=== PATIENT | female | born 1960 | race Two or more races ===

== ENCOUNTER 2025-01-23 21:48 | Emergency (ER) | payer MEDICAID, OTHER ==
[~2025-01-23] VITALS: Ht 172.7 cm; Wt 77.1 kg
[2025-01-23 21:50] VITALS: BP 115/70
[2025-01-23] MEDS ORDERED: OXYC-133 PO (22:15)
[2025-01-23] MEDS ORDERED: METO25TA6 PO (22:15)
[2025-01-23] MEDS ORDERED: ATOR40TA PO (22:15)
[2025-01-23] MEDS ORDERED: ASPI81TA31 PO (22:15)
[2025-01-23 22:34] LABS: PLATELET COUNT (AUTO) 233 K/uL (179-408); RED BLOOD CELL COUNT(AUTO) 4.66 MIL/uL (3.63-4.92); RED CELL DISTRIBUTION WIDTH 13.2 % (12.3-17.7); WHITE BLOOD COUNT (AUTO) 11.3 K/uL (3.8-11.8)
[2025-01-23 22:46] LABS: CREATININE 1.1 mg/dL (0.6-1.3); SODIUM SERUM 139 mmol/L (136-145); UREA NITROGEN, BLOOD 25 mg/dL (7-18)
[2025-01-23 22:52] LABS: ASPARTATE AMINOTRANSFERASE 14 U/L (15-37); TOTAL PROTEIN, SERUM 7.2 g/dL (6.4-8.2)
[2025-01-24] MEDS: IV NORMAL SALINE 1000 ML BAG IV ONE (00:19)
[2025-01-24] MEDS ORDERED: ONDANSETRON 4 MG/2 ML VIAL ONE (01:02)
[2025-01-24] MEDS: ONDANSETRON 4 MG/2 ML VIAL IV ONE (01:03)
[2025-01-24 01:25] VITALS: BP 132/75; TEMP 97.9; O2SAT 98
== END 2025-01-24 01:26 | disposition home or self-care (01) ==
LOC: ER 21:51
DX: R07.9 Chest pain, unspecified (principal); M54.2 Cervicalgia; R11.0 Nausea; E78.5 Hyperlipidemia, unspecified; I10 Essential (primary) hypertension; K21.9 Gastro-esophageal reflux disease without esophagitis; Z79.82 Long term (current) use of aspirin; Z79.899 Other long term (current) drug therapy
CPT/HCPCS: 99285; 71045; 80076; 80048; 83880; 85025; 85730; 84484 ×2; 36415 ×2; 93005; 96374; 96361; J2405; J7040; A4606; A4663